=== PATIENT | female | born 1995 | race Caucasian/White ===

== ENCOUNTER 2016-10-31 04:42 | Outpatient (CLI) | payer OTHER ==
[~2016-10-31] VITALS: Ht 175.3 cm; Wt 83.6 kg
[~2016-10-31 04:42] MED LIST: BACTRIM,SEPT1 TABLET PO; BENTYL20 MG PO; CEPHALEXIN500 M1 PO; ENDOCET 5-3251 EACH PO; FLAGYL500 MG PO; IBUPROFEN800 MG PO; MOTRIN800 MG PO; NOHOMEMEDS; NORCO 5/3251 TABLET PO; PERCOCET 5/31 TABLET PO; PROCARDIA XL30 MG PO; VENTOLIN HFA18 GM IH; ZITHROMAX Z-PA250 MG PO; ZOFRAN ODT8 MG PO
[2016-10-31 05:06] VITALS: BP 104/56
[2016-10-31] MEDS ORDERED: LO-DOSE ASPIRIN81 M1 PO (05:45)
[2016-10-31] MEDS ORDERED: PRENATAL TABLE1 EAC3 PO (05:45)
[2016-10-31 06:15] VITALS: BP 103/58
[2016-10-31 06:57] LABS: EOSINOPHIL (%) 0.4 % (0-5); EOSINOPHIL COUNT 0.1 K/uL (0-0.3); HEMATOCRIT 30.7 % (36.0-46.0); IMMATURE GRANULOCYTE (%) 1.5 % (0.0-0.7); IMMATURE GRANULOCYTE COUNT 0.2 K/uL; INSTRUMENT ABS NEUTROPHIL CT 9.9 K/uL; LYMPHOCYTE COUNT 3.1 K/uL (1.0-2.8); MCH 31.2 PG (29.0-34.0); MCHC 34.9 G/DL (30.0-36.0); MCV 89.5 FL (83-99); MEAN PLAT.VOLUME 11.1 uM^3 (9.5-12.4); MONOCYTE (%) 6.9 % (3-12); NEUTROPHIL (%) 69.2 % (45-76); NEUTROPHIL COUNT 9.9 K/uL (1.8-6.4); PLATELET COUNT 348 K/uL (156-360); RBC DIS.WIDTH-CV 13.4 % (11.8-14.6); RED BLOOD COUNT 3.43 M/uL (3.80-5.20); WHITE BLOOD COUNT 14.3 K/uL (4.1-10.2)
[2016-10-31 07:22] LABS: ALKALINE PHOSPHATASE 118 IU/L (3-129); ANION GAP 9 MEQ/L (2-14); CHLORIDE 105 MEQ/L (99-109); GFR ESTIMATE (CALCULATED) > 59 mL/min/; GLUCOSE 76 mg/dL (70-99); LACTATE DEHYDROGENASE 124 IU/L (20-246); POTASSIUM 3.8 MEQ/L (3.7-5.4); SAMPLE HEMOLYSIS CHECK 0; SAMPLE ICTERIC CHECK 0; SAMPLE LIPEMIA CHECK 0; SODIUM 135 MEQ/L (136-147); TOTAL BILIRUBIN 0.2 MG/DL (0.0-1.0); UREA NITROGEN (BUN) 6 mg/dL (9-23); URIC ACID 2.8 mg/dL (3.1-9.2)
[2016-10-31 07:26] LABS: UR CREATININE CONCENTRATION 21.6 MG/DL
== END 2016-10-31 06:45 | disposition home or self-care (01) ==
LOC: LDRP-OP 04:42 → 2WEST 04:43 → LDRP-OP 01-22 13:58
PROVIDERS: Obstetrics & Gynecology Gynecology
DX: O36.8130 Decreased fetal movements, third trimester, not applicable or unspecified (principal); Z3A.32 32 weeks gestation of pregnancy; O26.893 Other specified pregnancy related conditions, third trimester
CPT/HCPCS: 59025; 80053; 82570; 83615; 84156; 84550; 85025; 85384; 87077; 87086; 87186; G0378

== ENCOUNTER 2016-12-15 20:47 | Inpatient (IN) | payer OTHER ==
[~2016-12-15] VITALS: Ht 172.7 cm; Wt 90.7 kg
[~2016-12-15 20:47] MED LIST changes: +LO-DOSE ASPIRIN81 M1 PO; +PRENATAL TABLE1 EAC3 PO
[2016-12-15 21:06] VITALS: BP 119/54
[2016-12-15 21:35] LABS: EOSINOPHIL (%) 0.3 % (0-5); EOSINOPHIL COUNT 0.1 K/uL (0-0.3); HEMATOCRIT 31.7 % (36.0-46.0); IMMATURE GRANULOCYTE (%) 1.2 % (0.0-0.7); IMMATURE GRANULOCYTE COUNT 0.2 K/uL; INSTRUMENT ABS NEUTROPHIL CT 10.9 K/uL; LYMPHOCYTE COUNT 2.8 K/uL (1.0-2.8); MCH 30.9 PG (29.0-34.0); MCHC 34.4 G/DL (30.0-36.0); MCV 89.8 FL (83-99); MEAN PLAT.VOLUME 10.7 uM^3 (9.5-12.4); MONOCYTE (%) 7.2 % (3-12); MONOCYTE COUNT 1.1 K/uL (0-0.8); NEUTROPHIL (%) 72.2 % (45-76); NEUTROPHIL COUNT 10.9 K/uL (1.8-6.4); PLATELET COUNT 324 K/uL (156-360); RBC DIS.WIDTH-CV 14.6 % (11.8-14.6); RBC DIS.WIDTH-SD 47.6 % (39-53); RED BLOOD COUNT 3.53 M/uL (3.80-5.20)
[2016-12-15 22:19] VITALS: BP 108/63
[2016-12-15 23:44] VITALS: BP 112/60
[2016-12-16] VITALS (21 sets, daily range): BP systolic 91–126; BP diastolic 48–72
[2016-12-16] MEDS ORDERED: IBUPROFEN800 MG PO (11:18)
[2016-12-17 07:22] VITALS: BP 102/52
[2016-12-17 15:02] VITALS: BP 110/67
[2016-12-17 22:35] VITALS: BP 125/63
[2016-12-18 07:43] VITALS: BP 116/56
== END 2016-12-18 12:45 | disposition home or self-care (01) | DRG 775 ==
LOC: LDRP-OP 20:47 → 2WEST 20:48 → LDRP-OP 01-27 07:31
PROVIDERS: Advanced Practice Midwife
PROC: 00HU33Z Insertion of Infusion Device into Spinal Canal, Percutaneous Approach (ICD-10-PCS; principal; 2016-12-16)
PROC: 10E0XZZ Delivery of Products of Conception, External Approach (ICD-10-PCS; principal; 2016-12-16)
PROC: 3E0R3BZ Introduction of Anesthetic Agent into Spinal Canal, Percutaneous Approach (ICD-10-PCS; principal; 2016-12-16)
DX: O63.9 Long labor, unspecified (principal); O99.334 Smoking (tobacco) complicating childbirth; F17.210 Nicotine dependence, cigarettes, uncomplicated; O99.824 Streptococcus B carrier state complicating childbirth; O69.81X0 Labor and delivery complicated by cord around neck, without compression, not applicable or unspecified; K58.9 Irritable bowel syndrome, unspecified; Z37.0 Single live birth; Z3A.39 39 weeks gestation of pregnancy
CPT/HCPCS: 85025; G0378; J0595; J2540; J3010; J7120